=== PATIENT | male | born 1950 | race Caucasian/White ===

== ENCOUNTER 2020-08-22 14:19 | Inpatient (IN) | payer MEDICARE ==
[~2020-08-22] VITALS: Ht 182.9 cm; Wt 47.6 kg
[2020-08-22] MEDS ORDERED: IV NORMAL SALINE 1000 ML BAG IV ONE ×2 (14:30→17:15)
--- NOTE | 2020-08-22 14:48 | NUR ---
Pt BIB [facility], reports pt had 3 bouts of diarrhea in [place]. Pt c/o nausea and diarrhea, nearly vomited earlier (had taken laxatives for constipation for several days). Pt also c/o dyspnea, and dizziness. Pt denied CP, no distress noted, but pt had inhailer in his hand. Started 20g IV in right AC, but was unable to draw labs. Pt unable to give urine sample yet.
--- NOTE | 2020-08-22 15:00 | NUR ---
Lab unable to draw pt's blood.
[2020-08-22] MEDS ORDERED: MORPHINE SULFATE 2 MG/1 ML DISP.SYRIN IV ONE ×2 (16:15→21:30)
[2020-08-22 16:52] LABS: HEMATOCRIT 40.2 % (36.7-47.1); MEAN CORPUSCULAR HEMOGLOBIN 31.9 uug (23.8-33.4); MEAN CORPUSCULAR VOLUME 98.1 fL (73.0-96.2); PLATELET COUNT (AUTO) 254 K/uL (152-348)
[2020-08-22 16:55] LABS: CREATININE 1.6 mg/dL (0.6-1.3); POTASSIUM 4.6 mmol/L (3.5-5.1)
[2020-08-22] MEDS ORDERED: MORPHINE SULFATE 2 MG/1 ML DISP.SYRIN ONE ×3 (17:00→21:48)
--- NOTE | 2020-08-22 17:00 | NUR ---
placed U/S guided IV left AC, sameer labs, samples taken to lab. First liter of NS had finished by that time, so lactic acid level was post fluid bolus.
[2020-08-22 17:01] LABS: BILIRUBIN,TOTAL 0.4 mg/dL (0.2-1.0); TOTAL PROTEIN, SERUM 6.8 g/dL (6.4-8.2)
--- NOTE | 2020-08-22 17:44 | NUR ---
Jonel Martin MOLD CLEANER called at this time for panel call
[2020-08-22] MEDS ORDERED: CEFEPIME HCL 1 G in IV DEXTROSE 5% 50 ML IV ONE (17:45)
[2020-08-22] MEDS ORDERED: METRONIDAZOLE 500 MG/NS 100 ML PIGGYBACK IV ONE (17:45)
[2020-08-22] MEDS ORDERED: VANCOMYCIN IV 1,000 MG in IV DEXTROSE 5% 250 ML IV ONE (17:45)
[2020-08-22] MEDS ORDERED: MORPHINE SULFATE 4 MG/1 ML DISP.SYRIN IV ONE (18:15)
[2020-08-22] MEDS ORDERED: MORPHINE SULFATE 4 MG/1 ML DISP.SYRIN ONE (18:16)
[2020-08-22] MEDS ORDERED: METRONIDAZOLE 500 MG/NS 100ML 100 ML IV ONE ×2 (18:17→23:21)
[2020-08-22] MEDS ORDERED: CEFEPIME HCL 1 G VIAL ONE ×2 (18:44→23:20)
--- NOTE | 2020-08-22 19:15 | NUR ---
Started [employer] at 1840 and finished at 1914.
[2020-08-22] MEDS ORDERED: VANCOMYCIN IV 200 ML ONE (19:37)
[2020-08-22] MEDS ORDERED: Z GUARD REMEDY PASTE 57 GM TUBE TOP PRN (19:45)
[2020-08-22] MEDS ORDERED: ACETAMINOPHEN 325 MG TABLET PO PRN (19:45)
[2020-08-22] MEDS ORDERED: ONDANSETRON 4 MG/2 ML VIAL IV PRN (19:45)
[2020-08-22] MEDS ORDERED: HEPARIN SODIUM,PORCINE 5,000 UNITS/ML VIAL SQ SCH (21:00)
--- NOTE | 2020-08-22 21:38 | NUR ---
Gave report to CATIE Martin from tele pt going to room 330.
--- NOTE | 2020-08-22 21:58 | NUR ---
Pt. admitted to tele , under care of Dr. Martin Dx: colitis Belongs List completed
--- NOTE | 2020-08-22 22:10 | NUR ---
Patient is an admission, went to the room and introduce myself. Patient was interview about medical history, and when asked last time he urinate, the patient answer "I don't know... yesterday." Patient abdomen was palpated gently to asses for tenderness and to asses if patient has a full bladder. Patient become upset said I hurt him, explained to patient I need to assess him accurately as much as possible in order to get a clear and better care. Patient refused to be assess anymore. Patient easily get irritated during interview and end the session.
[2020-08-22 22:18] VITALS: BP 148/89
[2020-08-22] MEDS: IV NS 1000 ML 1,000 ML IV PRN (23:00)
--- NOTE | 2020-08-22 23:00 | NUR ---
RECEIVED PATIENT FROM RN. PATIENT AWAKE IN BED, A/O X4. PLEASANT WHEN APPROACHED. DENIES ANY PAIN AT THIS TIME. PATIENT STATED THAT HE HAS NOT BEEN ABLE TO URINATE TODAY. C/O MILD DISCOMFORT IN LOWER ABDOMEN WHEN ASSESSED. CHECKED PATIENTS BLADDER WITH SCANNER AND RECEIVED RETENTION OF 210Cc. PATIENT REFUSED FOR ANY STRAIGHT CATH TO BE INSERTED, STATING THAT HE HASN'S BEEN DRINKING AND WILL TRY TO URINATE LATER. NOTIFIED SENIOR QA TESTER. WILL CONTINUE TO MONITOR AND ASSESS. HEPLOCK X2 NOTED TO BILATERAL AC, BOTH #20 GAUGE. IVF STARTED AND INFUSING WELL TO LEFT AC. ORIENTED PATIENT TO ROOM AND CALL LIGHT. CALL LIGHT IN REACH. ALL NEEDS ATTENDED. WILL CONTINUE TO MONITOR AND ASSESS.
[2020-08-23] MEDS: OXYCODONE/APAP 5-325 MG TABLET PO PRN ×2 (01:00→09:16)
--- NOTE | 2020-08-23 01:51 | NUR ---
PATIENT AWAKE IN BED. HAD LARGE LOOSE BM. BRIGHT RED BLOOD NOTED IN DIAPER. CALLED OUT TO DR. CORDERO BOBJ DEVELOPER TO INFORM THAT BLOOD WAS NOTED. VSS. WILL CONTINUE TO MONITOR AND ASSESS.
[2020-08-23] MEDS: ZOLPIDEM 5 MG TABLET PO PRN (01:54)
[2020-08-23] MEDS ORDERED: METRONIDAZOLE 500 MG/NS 100ML 500 MG in PREMIXED 1 EACH IV SCH ×2 (02:00→14:00)
[2020-08-23 04:15] VITALS: BP 107/71
--- NOTE | 2020-08-23 04:30 | NUR ---
RECEIVED CALL BACK FROM DR. CRODERO. NEW ORDERS NOTED AND CARRIED OUT. ALL NEEDS ATTENDED. WILL CONTINUE TO MONITOR AND ASSESS.
[2020-08-23] MEDS ORDERED: MORPHINE SULFATE 2 MG/1 ML DISP.SYRIN IV ONE (05:15)
[2020-08-23] MEDS ORDERED: CEFEPIME HCL 1 G in IV DEXTROSE 5% 50 ML IV SCH ×2 (06:00→20:00)
[2020-08-23 06:17] LABS: HEMATOCRIT 37.1 % (36.7-47.1); MEAN CORPUSCULAR VOLUME 96.4 fL (73.0-96.2); PLATELET COUNT (AUTO) 224 K/uL (152-348)
[2020-08-23 06:39] LABS: CREATININE 1.3 mg/dL (0.6-1.3); MAGNESIUM 1.6 mg/dL (1.8-2.4); PHOSPHOROUS 3.5 mg/dL (2.5-4.9); POTASSIUM 4.7 mmol/L (3.5-5.1)
[2020-08-23 06:49] LABS: THYROID STIMULATING HORMONE 0.522 mIU/mL (0.358-3.740)
[2020-08-23] MEDS: FAMOTIDINE 20 MG TABLET PO SCH (09:12)
[2020-08-23] MEDS: METRONIDAZOLE 500 MG/NS 100ML 500 MG in PREMIXED 1 EACH IV SCH ×2 (09:26→09:27)
[2020-08-23] MEDS: MAGNESIUM SULFATE/D5W 100 ML IV SCH ×2 (09:44→11:27)
[2020-08-23 12:50] VITALS: BP 112/69
[2020-08-23] MEDS: IV NS 1000 ML 1,000 ML IV PRN (14:25)
[2020-08-23] MEDS: OXYCODONE HCL 5 MG TABLET PO PRN (14:34)
[2020-08-23 15:42] VITALS: BP 114/68
[2020-08-23] MEDS ORDERED: ASPI-1420 PO (15:43)
[2020-08-23] MEDS ORDERED: CARV3.122 PO (15:44)
[2020-08-23] MEDS ORDERED: CLOP75TA15 PO (15:46)
[2020-08-23] MEDS ORDERED: DIVA250T4 PO (15:47)
[2020-08-23] MEDS ORDERED: LEVE1000 PO (15:50)
[2020-08-23] MEDS ORDERED: FLUO40CA8 PO (15:50)
[2020-08-23] MEDS ORDERED: LISI2.5T2 PO (15:52)
[2020-08-23] MEDS ORDERED: MIRT-121 PO (15:53)
[2020-08-23] MEDS ORDERED: OLAN5TAB3 PO (15:53)
[2020-08-23] MEDS ORDERED: PANT40TA2 PO (15:54)
[2020-08-23] MEDS ORDERED: RANO500T3 PO (15:55)
[2020-08-23] MEDS ORDERED: SPIR25TA6 PO (15:56)
[2020-08-23] MEDS ORDERED: ARIP5TAB10 PO (15:56)
[2020-08-23] MEDS ORDERED: ALPR1TAB7 PO (15:57)
[2020-08-23] MEDS ORDERED: OXYC-133 PO (15:59)
[2020-08-23] MEDS: CEFEPIME HCL 1 G in IV DEXTROSE 5% 50 ML IV SCH (16:50)
[2020-08-23] MEDS ORDERED: ALPRAZOLAM 0.5 MG TABLET PO PRN (19:00)
--- NOTE | 2020-08-23 19:56 | NUR ---
Patient in bed alert awake and able to make needs known.Denies pain at this time.No s/s of distress noted.On O2 at 2LPM via NC ,saturating well. IV on left upper arm 20g patent and intact with Ns at 75 cc/hr infusing well.VSS.Will continue to monitor.Call light with in reach.
[2020-08-23 20:00] VITALS: BP 126/67
[2020-08-23] MEDS: RANOLAZINE 500 MG TAB.ER.12H PO SCH (21:03)
[2020-08-24] MEDS: METRONIDAZOLE 500 MG/NS 100ML 500 MG in PREMIXED 1 EACH IV SCH ×3 (01:23→17:06)
[2020-08-24] MEDS: ZOLPIDEM 5 MG TABLET PO PRN (01:27)
[2020-08-24] MEDS: IV NS 1000 ML 1,000 ML IV PRN (03:52)
[2020-08-24 04:00] VITALS: BP 131/79
[2020-08-24] MEDS: CEFEPIME HCL 1 G in IV DEXTROSE 5% 50 ML IV SCH ×2 (05:02→17:06)
[2020-08-24 06:13] LABS: CREATININE 0.9 mg/dL (0.6-1.3); MAGNESIUM 1.7 mg/dL (1.8-2.4); POTASSIUM 4.1 mmol/L (3.5-5.1)
[2020-08-24] MEDS: CARVEDILOL 3.125 MG TABLET PO SCH ×2 (08:46→17:03)
[2020-08-24] MEDS: levETIRAcetam 500 MG TABLET PO SCH ×2 (08:47→17:03)
[2020-08-24] MEDS: FLUOXETINE HCL 20 MG CAPSULE PO SCH ×2 (08:47→17:02)
[2020-08-24] MEDS: FAMOTIDINE 20 MG TABLET PO SCH (08:47)
[2020-08-24] MEDS: DIVALPROEX 250 MG TABLET.DR PO SCH ×3 (08:47→17:02)
[2020-08-24] MEDS: RANOLAZINE 500 MG TAB.ER.12H PO SCH (08:47)
[2020-08-24] MEDS ORDERED: SPIRONOLACTONE 25 MG TABLET PO SCH (09:00)
[2020-08-24] MEDS ORDERED: ASPIRIN EC 81 MG TABLET.DR PO SCH (09:00)
[2020-08-24] MEDS ORDERED: LISINOPRIL 5 MG TABLET PO SCH (09:00)
[2020-08-24] MEDS ORDERED: ARIPIPRAZOLE 5 MG TABLET PO SCH (09:00)
[2020-08-24] MEDS ORDERED: CLOPIDOGREL 75 MG TABLET PO SCH (09:00)
[2020-08-24] MEDS: OXYCODONE HCL 5 MG TABLET PO PRN (09:20)
[2020-08-24 10:00] VITALS: BP 131/79
[2020-08-24] MEDS: MAGNESIUM SULFATE/D5W 100 ML IV SCH ×3 (10:47→11:22)
[2020-08-24 11:55] VITALS: BP 114/64
--- NOTE | 2020-08-24 14:00 | NUR ---
THREATENING TO LEAVE AMA ALL AM. INSTRUCTED THAT MD AWARE OF HIS PLANS.
[2020-08-24] MEDS ORDERED: OXYCODONE/APAP 5-325 MG TABLET PO PRN (14:30)
[2020-08-24 15:57] VITALS: BP 139/81
[2020-08-24 17:03] VITALS: BP 139/81
[2020-08-24] MEDS ORDERED: OLANZAPINE 5 MG TABLET PO SCH (18:00)
[2020-08-24] MEDS ORDERED: MIRTAZAPINE 15 MG TABLET PO SCH (18:00)
--- NOTE | 2020-08-24 18:00 | NUR ---
WATCHING TV. NO C/O DISCOMFORT.
--- NOTE | 2020-08-24 19:10 | NUR ---
Received pt sitting in bed, no signs of distress. Pt signed AMA form, fully aware of the risks of leaving AMA. IV access and ID band removed, belongings with the pt. Pt's friend came with his own wheelchair to turkey picker the pt. Discharged pt in stable condition via private car.
== END 2020-08-24 21:58 | disposition left against medical advice (07) | DRG 871 ==
LOC: ER 14:19 → TELE3 21:39 → MEDSURG3 22:20
PROVIDERS: ADMIT Hospitalist; ATTEND Hospitalist
DX: A41.9 Sepsis, unspecified organism (principal); E43 Unspecified severe protein-calorie malnutrition; N17.9 Acute kidney failure, unspecified; E87.1 Hypo-osmolality and hyponatremia; E87.2 Acidosis; Z68.1 Body mass index [BMI] 19.9 or less, adult; K52.9 Noninfective gastroenteritis and colitis, unspecified; E83.42 Hypomagnesemia; E86.1 Hypovolemia; G89.4 Chronic pain syndrome; I10 Essential (primary) hypertension; Z20.822 Contact with and (suspected) exposure to COVID-19; Z79.891 Long term (current) use of opiate analgesic; E88.09 Other disorders of plasma-protein metabolism, not elsewhere classified; J44.9 Chronic obstructive pulmonary disease, unspecified; Z87.891 Personal history of nicotine dependence
CPT/HCPCS: 36415; 70030-TC; 71045; 83605; 83735; 84100; 84443; 85025; 85730; 87040; 93005; A4663; G0378; J0692; J1644; J2270; J2405; J3370; J3475; J3490; J7030; J7060